=== PATIENT | male | born 1950 | race Two or more races ===

== ENCOUNTER 2018-09-24 14:20 | Emergency (ER) | payer OTHER ==
[~2018-09-24] VITALS: Ht 172.7 cm; Wt 74.8 kg
[2018-09-24 14:28] VITALS: Ht 172.7 cm; Wt 74.8 kg
[2018-09-24 16:24] VITALS: BP 138/87
== END 2018-09-24 16:24 | disposition home or self-care (01) ==
LOC: ED 14:20
DX: S20.211A Contusion of right front wall of thorax, initial encounter (principal); S39.012A Strain of muscle, fascia and tendon of lower back, initial encounter; V43.02XA Car driver injured in collision with other type car in nontraffic accident, initial encounter; Y93.I9 Activity, other involving external motion; Y92.413 State road as the place of occurrence of the external cause; Y99.8 Other external cause status

== ENCOUNTER 2018-09-26 14:17 | Emergency (ER) | payer OTHER ==
[~2018-09-26] VITALS: Ht 172.7 cm; Wt 74.4 kg
[2018-09-26 14:45] VITALS: Ht 172.7 cm; Wt 74.4 kg
[2018-09-26 19:43] VITALS: BP 142/85
== END 2018-09-26 19:43 | disposition home or self-care (01) ==
LOC: ED 14:17
DX: S39.011A Strain of muscle, fascia and tendon of abdomen, initial encounter (principal); R07.89 Other chest pain; M54.5 Low back pain; M54.6 Pain in thoracic spine; V48.5XXA Car driver injured in noncollision transport accident in traffic accident, initial encounter; Y93.I9 Activity, other involving external motion; Y92.488 Other paved roadways as the place of occurrence of the external cause; Y99.8 Other external cause status